=== PATIENT | male | born 1975 | race Caucasian/White ===

== ENCOUNTER 2020-03-25 09:47 | Day surgery (SDC) | payer OTHER ==
[2020-03-22 12:31] VITALS: BMI 33.7
[~2020-03-25 09:47] MED LIST: LACTATED RINGERS 1,000 ML IV SCH
[2020-03-25 10:33] VITALS: TEMP 97.3
[2020-03-25] MEDS ORDERED: GLYCOPYRROLATE 0.2 MG/ML 2 ML VIAL ONE (11:17)
[2020-03-25] MEDS ORDERED: LIDOCAINE 1% INJ 10MG/ML (20 ML MDV) ONE (11:17)
[2020-03-25] MEDS ORDERED: PROPOFOL 10 MG/ML 20 ML VIAL IV ONE (11:17)
[2020-03-25 11:38] VITALS: RESP 16
--- NOTE | 2020-03-25 11:39 | P.PCN ---
Date of Procedure: 03/25/20 Description of Procedure: BRIEF HISTORY: Patient is a 45-year-old male presenting for outpatient es ophagogastroduodenoscopy for evaluation of GERD. Patient has a history of reflux, not currently on any treatment with PPI therapy or H2 nathan. He was recently treated for thrush. PROCEDURE PERFORMED: Esophagogastroduodenoscopy with biopsy. PREOPERATIVE DIAGNOSIS: GERD. ESTIMATED BLOOD LOSS: Minimal. IV sedation per anesthesia. PROCEDURE: After informed consent was obtained, the patient was brought into the endoscopy unit. IV sedation was administered by Anesthesia under continuous monitoring. Initially the Olympus GIF-190 video endoscope was inserted into the mouth. Esophagus intubated without any difficulty. It was gradually advanced into the stomach and duodenum and carefully examined. The bulb and the second part of the duodenum appeared normal, with biopsies taken. The scope at this time was withdrawn to the stomach, adequately insufflated with air, and upon careful examination, mucosa of the antrum, body, cardia and the fundus appeared normal, except for some mild scattered erythema in the antrum and body suggestive of mild gastritis and a nonbleeding linear 3 mm gastric ulcer in the body along the proximal greater curvature of the stomach without high risk stigmata of bleeding which was also biopsied. The scope was then withdrawn into the esophagus. The GE junction was located at 39 cm from the incisors, and biopsies. The esophagus appeared normal. There were no erosions or ulcerations seen and the patient tolerated the procedure well. IMPRESSION: 1. Nonbleeding small gastric ulcer. 2. Mild gastritis. 3. Biopsies of the duodenum, antrum and body, gastric ulcer and GE junction. RECOMMENDATIONS: The findings of this examination were discussed with the patient . Okay to resume diet. Okay to resume medications. Avoid NSAID use. Patient has been given a 8 week supply of omeprazole therapy to be taken daily for treatment of small nonbleeding gastric ulcer. Consider repeat EGD in 6-8 weeks to check for ulcer healing.
[2020-03-25 12:01] VITALS: BP 114/78; PULSE 61
== END 2020-03-25 12:18 | disposition home or self-care (01) ==
LOC: ORWHC2ENDO 09:47
PROVIDERS: ATTEND Internal Medicine
DX: K21.00 Gastro-esophageal reflux disease with esophagitis, without bleeding (principal); K29.50 Unspecified chronic gastritis without bleeding; K25.9 Gastric ulcer, unspecified as acute or chronic, without hemorrhage or perforation; Z98.890 Other specified postprocedural states; Z87.891 Personal history of nicotine dependence; Z86.19 Personal history of other infectious and parasitic diseases
CPT/HCPCS: 88305; 43239; J2001; J2704